=== PATIENT | female | born 1950 | race Caucasian/White ===

== ENCOUNTER 2020-11-19 17:04 | Emergency (ER) | payer MEDICARE, OTHER ==
--- NOTE | 2020-11-19 18:45 | CR ---
Chest: Portable view of the chest was obtained. Comparison: No prior chest imaging is available. Heart size and mediastinum are within normal limits for portable technique. Lungs are clear with no acute parenchymal change. No acute osseous abnormality is appreciated. Impression: 1. Nothing acute is seen on portable chest x-ray. Diagnostic code #1
--- NOTE | 2020-11-19 19:07 | EDM.PDOC ---
ED HPI GENERAL MEDICAL PROBLEM - General Chief Complaint: Respiratory Problem Stated Complaint: LOW O2 LEVEL SENT FROM [facility] Time Seen by Provider: 11/19/20 17:31 Source of Information: Reports: Patient, RN Notes Reviewed History Limitations: Reports: No Limitations - History of Present Illness INITIAL COMMENTS - FREE TEXT/NARRATIVE: Patient is a 70-year-old female presenting to the emergency department from [facility] for low oxygen saturation. Patient reports that she has been "feeling ill "since Monday. She reports a mild cough, nausea, and diarrhea. Does not feel short of breath. She feels that she may have had a fever. Denies any chest pain. Oxygen saturation in the clinic was found to be 90% on room air. - Related Data Allergies Allergy/AdvReac Type Severity Reaction Status Date / Time No Known Allergies Allergy Verified 11/19/20 17:45 Home Meds: Home Meds dexAMETHasone [Decadron] 6 mg PO DAILY #4 tablet 11/19/20 [Rx] Past Medical History Cardiovascular History: Reports: Hypertension Social & Family History - Tobacco Use Tobacco Use Status *Q: Never Tobacco User - Alcohol Use Days Per Week of Alcohol Use: 7 Number of Drinks Per Day: 4 Total Drinks Per Week: 28 - Recreational Drug Use Recreational Drug Use: No ED ROS GENERAL - Review of Systems Review Of Systems: See Below Constitutional: Reports: Fever, Fatigue, Decreased Appetite HEENT: Reports: No Symptoms Respiratory: Reports: Cough. Denies: Shortness of Breath, Wheezing, Pleuritic Chest Pain Cardiovascular: Reports: No Symptoms. Denies: Chest Pain, Dyspnea on Exertion, Lightheadedness, Palpitations Endocrine: Reports: No Symptoms GI/Abdominal: Reports: Diarrhea, Nausea. Denies: Abdominal Pain, Vomiting : Reports: No Symptoms Musculoskeletal: Reports: No Symptoms Skin: Reports: No Symptoms Neurological: Reports: No Symptoms Psychiatric: Reports: No Symptoms Hematologic/Lymphatic: Reports: No Symptoms Immunologic: Reports: No Symptoms ED EXAM, GENERAL - Physical Exam Exam: See Below Exam Limited By: No Limitations General Appearance: Alert, WD/WN, No Apparent Distress Respiratory/Chest: No Respiratory Distress, Lungs Clear, Normal Breath Sounds, No Accessory Muscle Use, Chest Non-Tender Cardiovascular: Normal Peripheral Pulses, Regular Rate, Rhythm, No Edema, No Gallop, No JVD, No Murmur, No Rub GI/Abdominal: Normal Bowel Sounds, Soft, Non-Tender, No Organomegaly, No Distention, No Abnormal Bruit, No Mass Neurological: Alert, Oriented, CN II-XII Intact, Normal Cognition, Normal Gait, Normal Reflexes, No Motor/Sensory Deficits Psychiatric: Normal Affect, Normal Mood Skin Exam: Warm, Dry, Intact, Normal Color, No Rash #1 Interpretation EKG Date: 11/19/20 Time: 18:31 Rhythm: NSR (8) Rate (Beats/Min): 8 [place]: Normal P-Wave: Present QRS: Normal ST-T: Normal QT: Prolonged (mildly) Course - Vital Signs Last Recorded V/S: Last Vital Signs Temp 98.4 F 11/19/20 22:15 Pulse 80 11/19/20 22:15 Resp 18 11/19/20 22:15 BP 146/75 H 11/19/20 22:15 Pulse Ox 86 L 11/19/20 22:15 - Orders/Labs/Meds Labs: Laboratory Tests 11/19/20 11/19/20 11/19/20 Range/Units 16:35 18:19 18:19 WBC 4.41 (3.98-10.04) K/mm3 RBC 5.20 (3.98-5.22) M/mm3 Hgb 15.8 H (11.2-15.7) gm/dl Hct 46.7 H (34.1-44.9) % MCV 89.8 (79.4-94.8) fl MCH 30.4 (25.6-32.2) pg MCHC 33.8 (32.2-35.5) g/dl RDW Std Deviation 44.4 (36.4-46.3) fL Plt Count 163 L (182-369) K/mm3 MPV 10.2 (9.4-12.3) fl Neut % (Auto) 66.7 (34.0-71.1) % Lymph % (Auto) 26.3 (19.3-51.7) % [place] % (Auto) 6.8 (4.7-12.5) % Eos % (Auto) 0 L (0.7-5.8) Baso % (Auto) 0.2 (0.1-1.2) % Neut # (Auto) 2.94 (1.56-6.13) K/mm3 Lymph # (Auto) 1.16 L (1.18-3.74) K/mm3 [place] # (Auto) 0.30 (0.24-0.36) K/mm3 Eos # (Auto) 0.00 L (0.04-0.36) K/mm3 Baso # (Auto) 0.01 (0.01-0.08) K/mm3 D-Dimer, Quantitative 0.61 H (0.19-0.50) mg/L Sodium (136-145) mEq/L Potassium (3.5-5.1) mEq/L Chloride (98-107) mEq/L Carbon Dioxide (21-32) mEq/L Anion Gap (5-15) BUN (7-18) mg/dL Creatinine (0.55-1.02) mg/dL Est Cr Clr Drug Dosing mL/min Estimated GFR (MDRD) (>60) mL/min BUN/Creatinine Ratio (14-18) Glucose (70-99) mg/dL Calcium (8.5-10.1) mg/dL Total Bilirubin (0.2-1.0) mg/dL AST (15-37) U/L ALT (14-59) U/L Alkaline Phosphatase (46-116) U/L Troponin I (0.00-0.056) ng/mL C-Reactive Protein (<1.0) mg/dL NT-Pro-B Natriuret Pep (0-125) pg/mL Total Protein (6.4-8.2) g/dl Albumin (3.4-5.0) g/dl Globulin gm/dL Albumin/Globulin Ratio (1-2) SARS-CoV-2 RNA (ABIGAIL) Positive H (NEGATIVE) 11/19/20 11/19/20 Range/Units 18:19 18:19 WBC (3.98-10.04) K/mm3 RBC (3.98-5.22) M/mm3 Hgb (11.2-15.7) gm/dl Hct (34.1-44.9) % MCV (79.4-94.8) fl MCH (25.6-32.2) pg MCHC (32.2-35.5) g/dl RDW Std Deviation (36.4-46.3) fL Plt Count (182-369) K/mm3 MPV (9.4-12.3) fl Neut % (Auto) (34.0-71.1) % Lymph % (Auto) (19.3-51.7) % [place] % (Auto) (4.7-12.5) % Eos % (Auto) (0.7-5.8) Baso % (Auto) (0.1-1.2) % Neut # (Auto) (1.56-6.13) K/mm3 Lymph # (Auto) (1.18-3.74) K/mm3 [place] # (Auto) (0.24-0.36) K/mm3 Eos # (Auto) (0.04-0.36) K/mm3 Baso # (Auto) (0.01-0.08) K/mm3 D-Dimer, Quantitative (0.19-0.50) mg/L Sodium 137 (136-145) mEq/L Potassium 3.2 L (3.5-5.1) mEq/L Chloride 102 (98-107) mEq/L Carbon Dioxide 23 (21-32) mEq/L Anion Gap 15.2 H (5-15) BUN 17 (7-18) mg/dL Creatinine 1.3 H (0.55-1.02) mg/dL Est Cr Clr Drug Dosing 39.72 mL/min Estimated GFR (MDRD) 41 (>60) mL/min BUN/Creatinine Ratio 13.1 L (14-18) Glucose 114 H (70-99) mg/dL Calcium 8.8 (8.5-10.1) mg/dL Total Bilirubin 0.5 (0.2-1.0) mg/dL AST 322 H (15-37) U/L ALT 395 H (14-59) U/L Alkaline Phosphatase 85 (46-116) U/L Troponin I < 0.017 (0.00-0.056) ng/mL C-Reactive Protein 7.9 H* (<1.0) mg/dL NT-Pro-B Natriuret Pep 298 H (0-125) pg/mL Total Protein 7.6 (6.4-8.2) g/dl Albumin 3.7 (3.4-5.0) g/dl Globulin 3.9 gm/dL Albumin/Globulin Ratio 1.0 (1-2) SARS-CoV-2 RNA (ABIGAIL) (NEGATIVE) Meds: Medications Discontinued Medications Generic Name Dose Route Start Last Admin Trade Name Freq PRN Reason Stop Dose Admin Dexamethasone 6 mg 11/19/20 19:50 11/19/20 20:18 Dexamethasone 4 Mg Tab PO 11/19/20 19:51 6 mg ONETIME ONE Administration Diphenhydramine HCl 50 mg 11/19/20 19:49 Diphenhydramine 50 Mg/Ml Sdv IVPUSH ONETIME PRN hypersensitivity reaction Epinephrine HCl 0.3 mg 11/19/20 19:49 Epinephrine 1 Mg/Ml Sdv IM ONETIME PRN hypersensitivity reaction Famotidine 20 mg 11/19/20 19:49 Famotidine 20 Mg/2 Ml Sdv IVPUSH ONETIME PRN hypersensitivity reaction CASIRIVIMAB/IMDEVIMAB 10 ml/ 110 mls @ 220 mls/hr 11/19/20 19:49 11/19/20 20:18 Sodium Chloride IV 11/19/20 20:18 220 mls/hr ONETIME ONE Administration Methylprednisolone Sodium Succinate 125 mg 11/19/20 19:49 Methylprednisolone Sodium Succinate 125 Mg/2 Ml Sdv IVPUSH ONETIME PRN hypersensitivity reaction Sodium Chloride 30 ml 11/19/20 20:00 Sodium Chloride 0.9% 10 Ml Syringe FLUSH ASDIRECTED CESARIO - Re-Assessments/Exams Free Text/Narrative Re-Assessment/Exam: 11/19/20 19:50 Hematology significant for hemoglobin elevated 15.8, D-dimer 0.61, potassium 3.2, creatinine 1.3, AST 322, ALT 395, CRP 7.9. Troponin is undetectably low. When adjusted for age, patient's D-dimer is normal. Covid is positive. Chest x-ray shows no acute abnormalities. Oxygen saturations have been as low as 86% on room air but average 88 to 92%. Plan will be for patient to be sent home with oxygen and on dexamethasone. I spoke with patient to provide information about Regeneron treatment for patient I offered them the ``Patient and Caregiver EUA Regeneron Fact Sheet to read and review I stated the drug has been approved by an emergency use authorization (EUA) process and has not fully been FDA reviewed or approved The patient meets the EUA requirements I discussed there are other potential treatment options that are currently not FDA approved to treat COVID-19. Offered opportunity to ask questions and all questions were answered Patient voiced understanding and agreed to proceed with treatment for patient. I will write orders for home oxygen so that her may go pick this up while she is receiving this infusion. 11/19/202124 Patient has completed her infusion and waiting period without adverse event. We will discharge her home with prescription for dexamethasone and home oxygen. Discussed that if she is requiring more than 3 L oxygen keep her saturation above 92, she should return to the ER. She verbalized understanding of this. Discharge instructions as documented. Departure - Departure Time of Disposition: 21:28 Disposition: Home, Self-Care 01 Condition: Good Clinical Impression: COVID-19, Hypoxia - Discharge Information *PRESCRIPTION DRUG MONITORING PROGRAM REVIEWED*: No *COPY OF PRESCRIPTION DRUG MONITORING REPORT IN PATIENT INDIRA: No Prescriptions: dexAMETHasone [Decadron] 6 mg PO DAILY #4 tablet Instructions: COVID-19 Referrals: Thu Grigsby, RECL[employer] FURNACE OPERATOR [Primary Care Provider] - Forms: ED Department Discharge Additional Instructions: You were seen in the emergency department today for evaluation with regards to diarrhea and cough as well as findings of low oxygen saturation at the clinic. Work-up included blood work, EKG, chest x-ray, and Covid test. Results of your work-up did show that you have Covid positive. While in the ER, you received an infusion of monoclonal antibodies as well as a first dose of dexamethasone which is a steroid. Prescription for dexamethasone has been sent to your pharmacy. Your oxygen saturations were intermittently low in the emergency department. You have been sent home with supplemental oxygen. You may titrate this between one and 3 L as needed to keep your oxygen saturations above 92%. If you are requiring more than 3 L of oxygen to bring your saturation above 92%, you should be reevaluated in the emergency department. If you develop any other new or worsening symptoms of concern, please do not hesitate to return to the ER. Sepsis Event Note (ED) - Evaluation Sepsis Screening Result: No Definite Risk - Focused Exam Vital Signs: Vital Signs Temp Pulse Resp BP Pulse Ox 11/19/20 22:15 98.4 F 80 18 146/75 H 86 L 11/19/20 22:00 82 18 150/85 H 85 L 11/19/20 21:45 98.4 F 80 18 145/75 H 86 L 11/19/20 21:30 97.8 F 79 16 146/69 H 86 L 11/19/20 21:15 98.3 F 81 16 147/68 H 86 L 11/19/20 21:00 98.2 F 147/82 H 87 L 11/19/20 20:45 98.1 F 80 16 151/72 H 88 L 11/19/20 20:30 98.8 F 80 16 136/75 88 L 11/19/20 20:25 88 L 11/19/20 17:43 99.2 F 85 16 161/76 H 89 L
[2020-11-19] MEDS ORDERED: methylPREDNISolone Sodium Succinate 125 MG/2 ML SDV IVPUSH PRN (19:49)
[2020-11-19] MEDS ORDERED: EPINEPHrine 1 MG/ML SDV IM PRN (19:49)
[2020-11-19] MEDS ORDERED: diphenhydrAMINE 50 MG/ML SDV IVPUSH PRN (19:49)
[2020-11-19] MEDS ORDERED: Famotidine 20 MG/2 ML SDV IVPUSH PRN (19:49)
[2020-11-19] MEDS ORDERED: Dexamethasone 4 MG Tab PO ONE (19:50)
[2020-11-19] MEDS ORDERED: Sodium Chloride 0.9% 10 ML Syringe FLUSH SCH (20:00)
== END 2020-11-19 22:24 | disposition home or self-care (01) ==
LOC: JD.ED 17:04
DX: U07.1 COVID-19 (principal); I10 Essential (primary) hypertension
CPT/HCPCS: 36415; 71045; 80053; 83880; 84484; 85025; 85379; 86140; 93005; 99284; J8540; M0243; Q0243; U0002; 93010; 99283